=== PATIENT | male | born 1965 | race Caucasian/White ===

== ENCOUNTER 2017-01-23 00:32 | Emergency (ER) | payer MEDICAID ==
[2017-01-23 00:33] VITALS: BMI 30.7
[2017-01-23 00:55] VITALS: BP 127/90; PULSE 88; RESP 20; TEMP 98.4; O2SAT 98
[2017-01-23] MEDS ORDERED: Acetaminophen-Codeine 300/30 mg Tab PO STA (01:22)
--- NOTE | 2017-01-23 01:22 | C.PDOC ---
History Of Present Illness 51 year old male presents to the ED with complaints of worsening pain with chewing in area of dental work performed to fix a prior root canal five days prior. Patients admits to pain that waxes and wanes and takes Tylenol for pain. He called the dental clinic that performed the procedure and was advised to go to the ED. Patient denies fever or any other complaints at this time. Time Seen by Provider: 01/23/17 01:06 Chief Complaint (Nursing): Dental Pain History Per: Patient History/Exam Limitations: no limitations Onset/Duration Of Symptoms: Days Current Symptoms Are (Timing): Still Present Recent travel outside of the [place]: No Past Medical History Reviewed: Historical Data, Nursing Documentation, Vital Signs Vital Signs: Last Vital Signs Temp 98.4 F 01/23/17 00:49 Pulse 88 01/23/17 00:49 Resp 20 01/23/17 00:49 BP 127/90 01/23/17 00:49 Pulse Ox 98 01/23/17 03:05 - Medical History PMH: Kidney Stones, Chronic Kidney Disease - [facility] Procedures PHYSICAL THERAPY NEC (03/13/14) Family History: States: No Known Family Hx - Social History Hx Alcohol Use: No Hx Substance Use: No Review Of Systems Constitutional: Negative for: Fever, Chills ENT: Positive for: Other (tooth pain ) Cardiovascular: Negative for: Chest Pain, Palpitations Respiratory: Negative for: Cough, Shortness of Breath Gastrointestinal: Negative for: Nausea, Vomiting, Abdominal Pain, Diarrhea Physical Exam - Physical Exam Appears: Non-toxic, No Acute Distress Skin: Warm, Dry Head: Atraumatic Oral Mucosa: Moist Tongue: No Swelling, No Lesions Lips: No Swelling Teeth: Other (right bicuspid tender to percussion, suture present at gum line and sutures in second molar) Neurological/Psych: Oriented x3 ED Course And Treatment O2 Sat by Pulse Oximetry: 98 (room air ) Medical Decision Making Medical Decision Making: Plan Change abx, additional pain meds advised to follow up in dental clinic tuesday Disposition - Disposition Disposition: HOME/ ROUTINE Disposition Time: : Condition: GOOD Additional Instructions: Follow up with your dental clinic [facility] Prescriptions: Acetaminophen with Codeine [Tylenol with Codeine #3 Tablet] 1 tab PO Q4H PRN # 12 tablet PRN Reason: .pain Clindamycin [Cleocin] 1 cap PO QID #28 cap Instructions: Toothache (ED) - Clinical Impression Clinical Impression: Tooth ache - Scribe Statement The provider has reviewed the documentation as recorded by the Scribe Rhiannon Galindo All medical record entries made by the Scribe were at my direction and personally dictated by me. I have reviewed the chart and agree that the record accurately reflects my personal performance of the history, physical exam, medical decision making, and the department course for this patient. I have also personally directed, reviewed, and agree with the discharge instructions and disposition.
[2017-01-23] MEDS ORDERED: Acetaminophen-Codeine 300/30 mg Tab PO ONE (01:48)
== END 2017-01-23 01:30 | disposition home or self-care (01) ==
LOC: C.ER 00:32
DX: K08.89 Other specified disorders of teeth and supporting structures (principal)